=== PATIENT | male | born 1965 | race Caucasian/White ===

== ENCOUNTER 2019-09-01 07:49 | Emergency (ER) | payer OTHER, SELFPAY ==
[~2019-09-01] VITALS: Ht 177.8 cm; Wt 63.5 kg
[~2019-09-01 07:49] MED LIST: APIX2.5T PO; DEXA6TAB5 PO
[2019-09-01 08:00] VITALS: BP_SYST 113
[2019-09-01 10:20] VITALS: BP_SYST 113
== END 2019-09-01 10:20 | disposition home or self-care (01) ==
LOC: SED 07:49
DX: U07.1 COVID-19 (principal); J18.9 Pneumonia, unspecified organism; R06.02 Shortness of breath
CPT/HCPCS: 99283